=== PATIENT | male | born 2000 | race Caucasian/White ===

== ENCOUNTER 2021-10-13 16:58 | Emergency (ER) | payer OTHER | END 2021-10-13 19:30 | disposition home or self-care (01) | LOC: JP.ED 16:58 | DX: S92.354A Nondisplaced fracture of fifth metatarsal bone, right foot, initial encounter for closed fracture (principal); Z79.899 Other long term (current) drug therapy; Z86.16 Personal history of COVID-19; Z87.891 Personal history of nicotine dependence | CPT/HCPCS: 73630-RT; 99283 ==